=== PATIENT | male | born 1985 | race Caucasian/White ===

== ENCOUNTER 2017-12-18 19:29 | Emergency (ER) | payer SELFPAY ==
[~2017-12-18] VITALS: Ht 177.8 cm; Wt 165.3 kg
[~2017-12-18 19:29] MED LIST: LORTA5 PO
[2017-12-18 19:55] VITALS: BP 159/104; PULSE 88; RESP 20
[2017-12-18 20:04] VITALS: TEMP 98.4; O2SAT 100
[2017-12-18] MEDS ORDERED: MAGICADU2 SWISH-SPIT (20:09)
[2017-12-18] MEDS ORDERED: CLIN300C5 PO (20:09)
--- NOTE | 2017-12-18 20:16 | PD ---
HPI Chief Complaint: Oral / Dental Pain or Problem Time Seen by Provider: 20:03 Travel History International Travel<30 days: No Contact w/Intl Traveler<30days: No Traveled to known affect area: No History of Present Illness HPI 32-year-old male presents for evaluation of dental pain. Symptoms started 4 days ago. He reports a throbbing pain in the left maxillary and mandibular third molars, constant, worse with chewing, unrelieved with [id number] NSAIDs. He has had similar pain in the past. He has been unable to see a dentist secondary to insurance issues. He has no other complaints at this time. PFS Past Medical History Arthritis: No Asthma: No Anxiety: No Depression: No Heart Rhythm Problems: No Cancer: No Cardiovascular Problems: No High Cholesterol: No Cerebrovascular Accident: No Diabetes: No Diminished Hearing: No Endocrine: No GERD: Yes (OCCASIONALLY) Genitourinary: No Hiatal Hernia: No Kidney Stones: No Musculoskeletal: No Neurologic: No Psychiatric: No Reproductive: No Respiratory: No Migraines: No Renal Failure: No Seizures: No Sickle Cell Disease: No Thyroid Disease: No Ulcer: No ?: Not Past Surgical History Abdominal Surgery: No Cardiac Surgery: No Endocrine Surgery: No Eye Surgery: No Genitourinary Surgery: No Gynecologic Surgery: No Thoracic Surgery: No Social History Alcohol Use: No Tobacco Use: No Substance Use: No Allergies-Medications (Allergen,Severity, Reaction): Coded Allergies: penicillin G (Unverified Allergy, Intermediate, Hives, 12/18/17) Reported Meds & Prescriptions Reported Meds & Active Scripts Active Magic Mouthwash Adult Liq (Multi-Ingredient Mouthwash/Gargle) 120 Ml Susp 10 Ml SWISH-SPIT ACHS Each 5mL contains: Nystatin 200,000units, Diphenhydramine 4.25mg, Viscous Lidocaine 10mg, Rodriguez syrup 0.8 mL Clindamycin (Clindamycin HCl) 300 Mg Cap 300 Mg PO TID Review of Systems General / Constitutional: No: Fever, Chills HENT: Positive: Dental Difficulties, No: Sore Throat, Congestion, Neck Stiffness Respiratory: No: Cough Gastrointestinal: No: Nausea, Vomiting Physical Exam Narrative GENERAL: Well-developed well-nourished male in no acute distress SKIN: Warm and dry. HEAD: Atraumatic. Normocephalic. EYES: Pupils equal and round. No scleral icterus. No injection or drainage. ENT: No nasal bleeding or discharge. Mucous membranes pink and moist. Sublingual edema, no trismus. Multiple areas of dental decay in several of the teeth. NECK: Trachea midline. No JVD. No lymphadenopathy, no submandibular edema. CARDIOVASCULAR: Regular rate and rhythm. No murmur appreciated. RESPIRATORY: No accessory muscle use. Clear to auscultation. Breath sounds equal bilaterally. Data Data Last Documented VS Vital Signs Date Time Temp Pulse Resp B/P (MAP) Pulse Ox O2 Delivery O2 Flow Rate FiO2 12/18/17 20:04 98.4 100 12/18/17 19:55 88 20 159/104 (122) MDM Medical Decision Making Medical Screen Exam Complete: Yes Emergency Medical Condition: Yes Medical Record Reviewed: Yes Differential Diagnosis Dental caries, pulpitis, pericoronitis, periodontal abscess Narrative Course 32-year-old male 4 days of dental pain. Examination reveals dental caries. The patient is allergic to penicillin. He is being discharged with clindamycin , Magic mouthwash, recommend outpatient follow-up with dentist for definitive treatment. Diagnosis Primary Impression: Dental caries Additional Instructions: Medication as prescribed. Follow up with a dentist for definitive therapy. Return for any emergent medical conditions. Med/Other Pt SpecificInfo: Prescription(s) given Scripts Uehcyvsa-Tdlonkogwucvuxm-Ntfnjutxu Liq (Magic Mouthwash Adult Liq) 120 Ml Susp 10 ML SWISH-SPIT ACHS for Mouth sores, #120 ML 1 Refill Each 5mL contains: Nystatin 200,000units, Diphenhydramine 4.25mg, Viscous Lidocaine 10mg, Rodriguez syrup 0.8 mL Prov: Grant Parks MD 12/18/17 Clindamycin (Clindamycin) 300 Mg Cap 300 MG PO TID for Infection, #21 CAP 0 Refills Prov: Grant Parks MD 12/18/17 Disposition: 01 DISCHARGE HOME Condition: Stable Collins Marroquin Dec 18, 2017 20:16
== END 2017-12-18 20:23 | disposition home or self-care (01) ==
LOC: PHEFT 19:29
DX: K02.9 Dental caries, unspecified (principal)
CPT/HCPCS: 99284